=== PATIENT | female | born 1985 | race Caucasian/White ===

== ENCOUNTER 2018-11-09 07:23 | Day surgery (SDC) | payer OTHER ==
[2018-11-09] VITALS (13 sets, daily range): BP systolic 97–129; BP diastolic 54–79; PULSE 69–112; RESP 14–19
[~2018-11-09] VITALS: Ht 152.4 cm; Wt 58.0 kg
[~2018-11-09 07:23] MED LIST: BUTA-249 PO; BUTA1CAP38 PO; HYDR-3601 PO; IBUP-1542 PO; LACTATED RINGER'S 1,000 ML IV SCH; MAGN296S40 PO; NITR-58 PO; POLY17PO6 PO; PRENAT PO; URSO300C3 PO
[2018-11-09] MEDS ORDERED: SEVOFLURANE 15 MIN ONE (09:20)
[2018-11-09] MEDS ORDERED: MIDAZOLAM 1 MG/ML 2 ML INJ ONE (09:20)
[2018-11-09] MEDS ORDERED: NEOSTIGMINE 3 MG/3 ML SYRINGE ONE (11:17)
[2018-11-09] MEDS ORDERED: ROCURONIUM 50 MG INJ ONE (11:17)
[2018-11-09] MEDS ORDERED: GLYCOPYRROLATE 0.4 MG INJ ONE (11:17)
[2018-11-09] MEDS ORDERED: PROPOFOL 20 ML ONE (11:17)
[2018-11-09] MEDS ORDERED: ONDANSETRON 4 MG INJ ONE ×2 (11:17→11:33)
[2018-11-09] MEDS ORDERED: LIDOCAINE 2% (SDV) 5 ML INJ ONE (11:17)
[2018-11-09] MEDS ORDERED: CEFAZOLIN 1 GM INJ ONE (11:18)
[2018-11-09] MEDS ORDERED: FENTAnyl 50 MCG/ML VIAL ONE (11:30)
[2018-11-09] MEDS: FENTAnyl 50 MCG/ML VIAL IV PRN ×3 (11:46→12:15)
[2018-11-09] MEDS: HYDROmorphONE 1 MG/5 ML IV SYRINGE IV PRN ×4 (11:47→12:16)
[2018-11-09] MEDS ORDERED: METOCLOPRAMIDE 10 MG INJ IV PRN (12:00)
[2018-11-09] MEDS ORDERED: MEPERIDINE 25 MG INJ IV PRN (12:00)
[2018-11-09] MEDS ORDERED: DIPHENHYDRAMINE 50 MG INJ IV PRN (12:00)
[2018-11-09] MEDS ORDERED: ONDANSETRON 4 MG INJ IV PRN (12:00)
[2018-11-09] MEDS ORDERED: KETOROLAC 30 MG INJ IV PRN (12:00)
== END 2018-11-09 13:10 | disposition home or self-care (01) ==
LOC: SDS 07:23
PROVIDERS: ATTEND Obstetrics & Gynecology
DX: Z30.2 Encounter for sterilization (principal); N92.0 Excessive and frequent menstruation with regular cycle
CPT/HCPCS: 84703; 88305; J0690; J1170; J1885; J2175; J2250; J2405; J2710; J3010